=== PATIENT | female | born 1955 | race Caucasian/White ===

== ENCOUNTER 2022-12-03 16:04 | Outpatient (CLI) | payer MEDICARE, BC, SELFPAY ==
--- NOTE | 2022-12-03 16:00 | CRLHL7_ITS ---
For Patients: As a result of the Cures Act, medical imaging exams and procedure reports are released immediately into your electronic medical record. You may view this report before your referring provider. If you have questions, please contact your health care provider. INDICATION: Renal cysts on MRI of the lumbar spine TECHNIQUE: Ultrasound renal bilateral COMPARISON: None FINDINGS: Right kidney: 10.9 cm. Normal echotexture and cortex. No masses, stones, or hydronephrosis. Left kidney: 9.8 cm. Normal echotexture and cortex. No masses, stones, or hydronephrosis. IMPRESSION: Normal renal ultrasound. No evidence for renal cysts. Dictated by Chidi Abreu MD @ 12/03/2022 6:52:56 PM (Electronically Signed)
== END 2022-12-03 16:05 | disposition home or self-care (01) ==
LOC: US 16:06
PROVIDERS: PCP Family Medicine; Visit Provider Internal Medicine Nephrology
DX: N28.1 Cyst of kidney, acquired (principal)
CPT/HCPCS: 76775

== ENCOUNTER 2023-08-26 06:24 | Outpatient (CLI) | payer MEDICARE, BC, SELFPAY ==
--- OUTSIDE RECORDS SUMMARY | 2023-08-26 06:26 | XMS_ITS | Continuity of Care Document ---
Author Name Unknown Organization [facility] Address [address] [place] [address] Phone Care Team Providers Care Field Investigator Name Role Phone Ml Perla Unavailable Unavailable Allergies, Adverse Reactions, Alerts Substance Reaction Status Criticality adhesive Active No Information Medications Medication Instructions Dosage Effective Dates (start - stop) Status Comments VITAMIN D3 (unknown strength) Not Available - Active ATORVASTATIN CALCIUM (unknown strength) Not Available - Active Procedures Procedure Date Office/Outpatient Visit,Est, Mod 2021 Office/Outpatient Visit,New, Mod 2021 X-Ray Exam Of Neck Spine, 4+ Views Advance Directives Directive Yes / No Effective Date File Name No Information Encounters Encounter Description Practice Location Reason(s) For Visit Diagnoses Date Provider Providers Copied on Encounter Office/Outpat ient Visit,Est, Mod [facility], [address], [place], [id number], [place] tel:[phone] [facility] Spinal stenosis, cervical regionOther spondylosis, cervical regionCarpal tunnel syndrome of arm Viktor Bull. [facility], [address], [place], [address], [place]. tel:[phone] Referring Provider: [facility] [address], [place], [address]. tel:[phone] Office/Outpat ient Visit,New, Mod [facility], [address], [place], [id number], [place] tel:[phone] [facility] Other spondylosis, cervical regionSpinal stenosis, cervical region Viktor Bull. [facility], [address], [place], [address], [place]. tel:[phone] Referring Provider: [facility] [address], [place], [address]. tel:[phone] Family History Family Member Type Diagnosis Age At Onset No Information Payers Payer name Insurance type Covered democrat ID Desirae lucio(s) [facility] [id number] [facility] [id number] Medicare [facility] [id number] Social History Type Description Quantity Date Captured Comments Alcohol Use Details Unknown Caffeine Use Details Unknown Tobacco Use Status Current non-smoker Smoking Status Never smoker Non-Smoking Tobacco Use Details : No Details Available : No Details Available Sex Female Vital Signs Date / Time: Height Weight BMI Pulse Rate Blood Pressure Temperature Respiratory Rate Body Surface Area Head Circumference Head Circ. Percentile Wt./Samir. Percentile BMI percentile Pulse Ox Inhaled Ox 1:15 PM 64.75 in 85.275 kg (188.00 lbs) 31.5 2 kg/m eter (2) Chief Complaint And Reason For Visit No Information Reason For Referral Reason For Referral No Information History Of Present Illness Encounter Date Complaint History Of Prese nt Illness No Information Functional Status Date Functional Assessmen t No Information Instructions Date Instruction Additional Infor mation No Information Assessments Type Assessment Date assessment Spinal stenosis, cervical region assessment Other spondylosis, cervical mariza on assessment Carpal tunnel syndrome of arm Ap Patient Care Teams Name Effective Dates (start - stop) Status Members No Information
--- NOTE | 2023-08-26 08:21 | W.ANESCHARGE ---
Anesthesia Charges Start Date/Time Anesthesia Start Date: 08/26/23 Anesthesia Start Time: 07:25 Stop Date/Time Anesthesia Stop Date: 08/26/23 Anesthesia Stop Time: 08:05
--- NOTE | 2023-08-26 09:34 | W.ANESCHARGE ---
Anesthesia Charges Start Date/Time Anesthesia Start Date: 08/26/23 Anesthesia Start Time: 07:25 Stop Date/Time Anesthesia Stop Date: 08/26/23 Anesthesia Stop Time: 08:05
== END 2023-08-26 06:25 | disposition home or self-care (01) ==
LOC: OP CLINIC 06:25
PROVIDERS: PCP Family Medicine; Visit Provider Surgery
DX: Z12.11 Encounter for screening for malignant neoplasm of colon (principal); K64.4 Residual hemorrhoidal skin tags; Z86.010 Personal history of colon polyps
CPT/HCPCS: 00811; 00812; 45378; J2704

== ENCOUNTER 2024-07-21 09:12 | Outpatient (CLI) | payer MEDICARE, BC, SELFPAY ==
--- OUTSIDE RECORDS SUMMARY | 2024-07-21 09:16 | XMS_ITS | Encounter Summary ---
Author Organization [place] Address [address] [place] [address]. [place] [address] Care Team Providers Care Cargo And Container Inspector Name Role Phone Jinny Rodríguez Unavailable Unavailable Armen Bray MD Unavailable [phone] Smita Worthy MD Unavailable [phone] Jinny Rodríguez Primary Care Provider Unavailab Smita Ornelas MD Unavailable [facility] Primary Care Provider Selma Fnog RN Unavailable [phone] Alisa Hartman PA-C Unavailable Encounter Details Date Type Department Care Team (Late st Contact Info) Description 06/16/2020 [facility] [place] [id number] [place] [address] [address] [facility] [place] [id number] Smita Worthy MD [address] [facility] [address] [place] [address] Social History Tobacco Use Types Packs/Day Years Used Date Smoking Tobacco: Never Smokeless Tobacco: Never Alcohol Use Standard Drinks/Week Comments Yes 0 (1 standard drink = 0.6 oz pur e alcohol) 5 drinks yearly PHQ-2 Answer Date Recorded PHQ-2 Score 0 12/01/2018 Sex and Gender Information Value Date Recorded Sex Assigned at Not on file Gender Identity Not on file Sexual Orientation Not on file documented as of this encounter Plan of Treatment Not on file documented as of this encounter Visit Diagnoses Not on filedocumented in this encounter Care Teams Cargo And Container Inspector Relationship Specialty Start Date End Date Jinny Rodríguez PCP - General Family Practice 09/09/16 01/22/[address] [address] PCP - General 01/23/21 Jinny Rodríguez 10/18/11 Armen Bray MD [facility] [address] [facility] [address] [place], [place] [id number] Oncology 01/20/13 Smita Worthy MD [address] [id number] Oncology 03/21/16 Smita Worthy MD [address] [id number] Assigned Cancer Care Provider 09/15/20 04/14/24 Selma Fong RN Specialty Electro Mechanical Solar Technician Hematology & Oncology 10/25/23 Alisa Hartman, [facility] [address] [place] [address] [id number] Assigned Cancer Care Provider 04/15/24 documented as of this encounter
--- OUTSIDE RECORDS SUMMARY | 2024-07-21 09:16 | XMS_ITS | Referral Summary ---
Author Organization [place] Address [address] [place] [address] Care Team Providers Care Pharmacy Technician Name Role Phone Jinny Rodríguez Ann Unavailable Unavailable Armen Bray MD Unavailable [phone] Smita Worthy MD Unavailable [facility] Primary Care Provider Selma Fong RN Unavailable [phone] Alisa Hartman PA-C Unavailable Encounters Date Type Department Care Team Description 04/22/2024 Travel 04/22/2024 2:26 PM CDT - 04/22/2024 11:59 PM CDT Hospital Encounter [facility] [address] [facility] [address] [place] [id number] Alisa Hartman PA-C MOE (dyspnea on exertion) Discharge Disposition: Home or Self Care from Last 3 Months Allergies Active Allergy Reactions Criticality Noted Date Comments Adhesive Tape Rash Low 05/02/2014 Redness & rash. Paper tape ok. Gluten Meal GI Disturbance 04/11/2022 Pt following gluten free diet Medications Medication Sig Dispensed Refills Start Date End Date Status atorvastatin (LIPITOR) 20 MG tablet Take 20 mg by mouth daily Active cholecalciferol (VITAMIN D3) 25 mcg (1000 units) capsule Take 1 capsule by mouth daily Active Active Problems Problem Noted Date Diagnosed Date S/P total knee arthroplasty 05/03/2014 Malignant neoplasm of breast 04/14/2013 Overview: Do you wish to do the replacement in the background? yes Fever 04/14/2013 Neutropenic fever (H24) 04/12/2013 Anemia, iron deficiency 01/28/2013 Malignant neoplasm of other specified sites of female breast 12/23/2012 Immunizations Name Administration Dates Next Due TD,PF 7+ (Tenivac) 05/08/2006 TDAP (Adacel,Boostrix) 10/15/2011 Social History Tobacco Use Types Packs/Day Years Used Date Smoking Tobacco: Never Smokeless Tobacco: Never Tobacco Cessation:Counseling Given: Not Answered Alcohol Use Standard Drinks/Week Comments Yes 0 (1 standard drink = 0.6 oz pur e alcohol) 5 drinks yearly PHQ-2 Answer Date Recorded PHQ-2 Score 0 12/01/2018 Adolescent Education Answer Date Record ed Getting School Help Needed Not on file 08/22 Sex and Gender Information Value Date Recorded Sex Assigned at Not on file Gender Identity Not on file Sexual Orientation Not on file Last Filed Vital Signs Vital Sign Reading Time Taken Comments Blood Pressure 144/83 03/31/2024 8:53 AM CDT Pulse 58 03/31/2024 8:53 AM CDT Temperature 36.4 ??C (97.6 ??F) 03/31/2024 8:53 AM CD T Respiratory Rate 16 03/31/2024 8:53 AM CDT Oxygen Saturation 100% 03/31/2024 8:53 AM CDT Inhaled Oxygen Concentration - - Weight 82.9 kg (182 lb 12.8 oz) 03/31/2024 8:53 AM CDT Height 164.5 cm (5' 4.75) 03/31/2024 8:53 AM CD T Body Mass Index 30.65 03/31/2024 8:53 AM CDT Plan of Treatment Not on file Medical Devices Implanted Type Area Customer Care Assistant Device Identifier Shelf Expiration Date Model / Serial / Lot Bone Cement Simplex Full Dose 6191-1-001 Implanted:Qty: 2 on 11/04/2011 at [facility] Left: Knee 08/18/2013 6191-1-001 / / [id number] Imp Comp Femoral Howm Tri Cr Lt 4 5510-F-401 Implanted:Qty: 1 on 11/04/2011 at [facility] Left: Knee 07/18/2016 5510-F-401 / / [id number] Imp Baseplate Tibial Howm Tri 4 5520-B-400 Implanted:Qty: 1 on 11/04/2011 at [facility] Left: Knee 07/18/2016 5520-B-400 / / [id number] Imp Comp Patella Tri X3 Ps 31x9mm Implanted:Qty: 1 on 11/04/2011 at [facility] Left: Knee 10/18/2016 5550-G-319 / / [id number] Imp Insert Tibial Howm Tri 4x11mm 5530-G-411 Implanted:Qty: 1 on 11/04/2011 at [facility] Left: Knee 07/18/2016 5530-G-411 / / [id number] Mesh Ultrapro 03x06 Implanted:Qty: 1 on 12/22/2012 by Eunice Lombardo MD at [facility] Bilateral: Breast [employer]- 07/23/2017 UMR3 / / [id number] Mesh Ultrapro 06x06 Implanted:Qty: 1 on 12/22/2012 by Eunice Lombardo MD at [facility] Bilateral: Breast [employer] 05/23/2014 UMM3 / / [id number] Imp Breast 600ml Gel Round Hp [id number] Implanted:Qty: 1 on 07/08/2013 by Eunice Lombardo MD at [facility] Right: Breast 01/21/2018 [id number] / [id number] / [id number] Bone Cement Simplex Full Dose 6191-1-001 Implanted:Qty: 2 on 05/03/2014 by Carlos Kumar MD at [facility] Right: Knee [employer] 04/23/2016 6191-1-001 / / [id number] Imp Baseplate Tibial Howm Tri 4 5520-B-400 Implanted:Qty: 1 on 05/03/2014 by Carlos Kumar MD at [facility] Right: Knee [employer] 01/21/2019 5520-B-400 / / [id number] Imp Comp Fem Strk Triathln Cr Rt 4 [id number] Implanted:Qty: 1 on 05/03/2014 by Carlos Kumar MD at [facility] Right: Knee [employer] 02/21/2019 5510-F-402 / / [id number] Imp Comp Patella Tri X3 Ps [id number] 0570-G-339 Implanted:Qty: 1 on 05/03/2014 by Carlos Kumar MD at [facility] Right: Knee [employer] 02/21/2019 5550-G-339 / / [id number] Imp Insert Tibial Howm Tri 4x13mm [id number]-G-[id number] Implanted:Qty: 1 on 05/03/2014 by Carlos Kumar MD at [facility] Right: Knee [employer] 04/23/2015 5531-G-413 / / [id number] Explanted Type Area Customer Care Assistant Device Identifier Shelf Expiration Date Model / Serial / Lot Tissue Senior It Specialist Implant Allergan 500ml [id number]-13 Implanted:Qty: 1 on 12/23/2012 by Eunice Lombardo MD at [facility] Explanted:Qty: 1 on 07/08/2013 by Eunice Lombardo MD at [facility] Right: Breast 10/23/2015 [id number] / [id number] / Procedures Procedure Name Priority Date/Time Associated Diagnosis Comments ECHO COMPLETE Routine 04/22/2024 3:06 PM CDT MOE (dyspnea on exertion) COMPREHENSIVE METABOLIC PANEL Routine 03/31/2024 8:40 AM CDT Malignant neoplasm of right breast in female, estrogen receptor positive, unspecified site of breast (H) DX BONE DENSITY Routine 04/29/2016 1:33 PM CDT Osteopenia LIPID PROFILE Routine 06/21/2013 11:50 AM CDT High cholesterol ABSTRACT PAP (HIM EXTERNAL RESULT) Routine 09/30/2009 COLONOSCOPY - HIM SCAN Routine 10/17/2008 from Last 3 Months or Most Recently Relevant to Health Maintenance Results * ECHO COMPLETE (04/22/2024 3:06 PM CDT) LVEF 55-60% CARDIOLOGY RESULTS Anatomical Region Laterality Modality Echocardiography 04/22/2024 1:39 PM CDT Narrative 04/22/2024 4:19 PM CDT [id number]^RAMIRO BUSTOS^ALISA^Laly [facility] Echocardiography Laboratory [address] [place] [id number] Name: EVON VILLALBA : 1955 Study Date: 04/22/2024 01:39 PM Age: 69 yrs Gender: Female Patient Location: [facility] Reason For Study: MOE Ordering Physician: ALISA HARTMAN Referring Physician: [facility] Performed By: Marita Vega RDCS BSA: 1.7 m2 Height: 54 in Weight: 182 lb HR: 64 BP: 155/85 mmHg Procedure Complete Echo Adult. Interpretation Summary The visual ejection fraction is 55-60%. Left ventricular systolic function is normal. There is trace aortic regurgitation. The study was technically difficult. Left Ventricle The left ventricle is normal in size. There is mild concentric left ventricular hypertrophy. Diastolic Doppler findings (E/E' ratio and/or other parameters) suggest left ventricular filling pressures are indeterminate. The visual ejection fraction is 55-60%. Left ventricular systolic function is normal. Right Ventricle The right ventricle is normal in size and function. Atria Normal left atrial size. Right atrial size is normal. There is no color Doppler evidence of an atrial shunt. Mitral Valve There is trace mitral regurgitation. Tricuspid Valve There is trace tricuspid regurgitation. Aortic Valve The aortic valve is not well visualized. There is trace aortic regurgitation. No hemodynamically significant valvular aortic stenosis. Pulmonic Valve There is trace pulmonic valvular regurgitation. Normal pulmonic valve velocity. Vessels The aortic root is normal size. Normal size ascending aorta. IVC diameter <2.1 cm collapsing >50% with sniff suggests a normal RA pressure of 3 mmHg. Pericardium There is no pericardial effusion. Rhythm The rhythm was sinus bradycardia. MMode/2D Measurements & Calculations IVSd: 1.2 cm LVIDd: 4.3 cm LVIDs: 2.9 cm LVPWd: 1.1 cm IVC diam: 2.7 cm FS: 32.9 % LV mass(C)d: 166.3 grams LV mass(C)dI: 100.1 grams/m2 Ao root diam: 3.1 cm asc Aorta Diam: 2.9 cm Ao root diam index Ht(cm/m): 2.2 Ao root diam index BSA (cm/m2): 1.8 Asc Ao diam index BSA (cm/m2): 1.7 Asc Ao diam index Ht(cm/m): 2.1 LA Volume Index (BP): 33.2 ml/m2 RWT: 0.50 Doppler Measurements & Calculations MV E max guille: 67.8 cm/sec MV A max guille: 63.1 cm/sec MV E/A: 1.1 MV max P.6 mmHg MV mean P.79 mmHg MV V2 VTI: 15.9 cm MV dec slope: 386.2 cm/sec2 MV dec time: 0.18 sec PA acc time: 0.13 sec TR max guille: 184.7 cm/sec TR max P.6 mmHg E/E': 10.6 Peak E' Guille: 6.4 cm/sec Report approved by: Teodoro Bateman 04/22/2024 04:19 PM Procedure Note Benito Herrera MD - 04/22/2024 [id number]^RAMIRO BUSTOS^LESLY [facility] Echocardiography Laboratory [address] [place] [address] Name: EVON VILLALBA : 1955 Study Date: 04/22/2024 01:39 PM Age: 69 yrs Gender: Female Patient Location: [facility] Reason For Study: MOE Ordering Physician: ALISA HARTMAN Referring Physician: [facility] Performed By: Marita Vega RDCS BSA: 1.7 m2 Height: 54 in Weight: 182 lb HR: 64 BP: 155/85 mmHg Procedure Complete Echo Adult. Interpretation Summary The visual ejection fraction is 55-60%. Left ventricular systolic function is normal. There is trace aortic regurgitation. The study was technically difficult. Left Ventricle The left ventricle is normal in size. There is mild concentric left ventricular hypertrophy. Diastolic Doppler findings (E/E' ratio and/orother parameters) suggest left ventricular filling pressures are indeterminate.The visual ejection fraction is 55-60%. Left ventricular systolic functionis normal. Right Ventricle The right ventricle is normal in size and function. Atria Normal left atrial size. Right atrial size is normal. There is no color Doppler evidence of an atrial shunt. Mitral Valve There is trace mitral regurgitation. Tricuspid Valve There is trace tricuspid regurgitation. Aortic Valve The aortic valve is not well visualized. There is trace aorticregurgitation. No hemodynamically significant valvular aortic stenosis. Pulmonic Valve There is trace pulmonic valvular regurgitation. Normal pulmonic valve velocity. Vessels The aortic root is normal size. Normal size ascending aorta. IVC diameter<2.1 cm collapsing >50% with sniff suggests a normal RA pressure of 3 mmHg. Pericardium There is no pericardial effusion. Rhythm The rhythm was sinus bradycardia. MMode/2D Measurements & Calculations IVSd: 1.2 cm LVIDd: 4.3 cm LVIDs: 2.9 cm LVPWd: 1.1 cm IVC diam: 2.7 cm FS: 32.9 % LV mass(C)d: 166.3 grams LV mass(C)dI: 100.1 grams/m2 Ao root diam: 3.1 cm asc Aorta Diam: 2.9 cm Ao root diam index Ht(cm/m): 2.2 Ao root diam index BSA (cm/m2): 1.8 Asc Ao diam index BSA (cm/m2): 1.7 Asc Ao diam index Ht(cm/m): 2.1 LA Volume Index (BP): 33.2 ml/m2 RWT: 0.50 Doppler Measurements & Calculations MV E max guille: 67.8 cm/sec MV A max guille: 63.1 cm/sec MV E/A: 1.1 MV max P.6 mmHg MV mean P.79 mmHg MV V2 VTI: 15.9 cm MV dec slope: 386.2 cm/sec2 MV dec time: 0.18 sec PA acc time: 0.13 sec TR max guille: 184.7 cm/sec TR max P.6 mmHg E/E': 10.6 Peak E' Guille: 6.4 cm/sec Report approved by: Teodoro Bateman 04/22/2024 04:19 PM Alisa Bustos PA-C CV ECHO ORDERABLES * Comprehensive metabolic panel (BMP + Alb, Alk Phos, ALT, AST, Total. Bili, TP) (03/31/2024 8:40 AM CDT) [facility] Sodium 144 135 - 145 mmol/L 03/31/2024 9:02 AM CDT [facility] Comment:Reference intervals for this test were updated on 08/19/2023 to more accurately reflect our healthy population. There may be differences in the flagging of prior results with similar values performed with this method. Interpretation of those prior results can be made in the context of the updated reference intervals. Potassium 4.3 3.4 - 5.3 mmol/L 03/31/2024 9:02 AM CDT LABORATORY Carbon Dioxide (CO2) 27 22 - 29 mmol/L 03/31/2024 9:02 AM CDT LABORATORY Anion Gap 12 7 - 15 mmol/L 03/31/2024 9:02 AM CDT LABORATORY Urea Nitrogen 19.9 8.0 - 23.0 mg/dL 03/31/2024 9:02 AM CDT LABORATORY Creatinine 0.64 0.51 - 0.95 mg/dL 03/31/2024 9:02 AM CDT LABORATORY GFR Estimate >90 >60 mL/min/1. 73m2 03/31/2024 9:02 AM CDT LABORATORY Calcium 9.3 8.8 - 10.2 mg/dL 03/31/2024 9:02 AM CDT LABORATORY Chloride 105 98 - 107 mmol/L 03/31/2024 9:02 AM CDT LABORATORY Glucose 98 70 - 99 mg/dL 03/31/2024 9:02 AM CDT LABORATORY Alkaline Phosphatase 76 40 - 150 U/L 03/31/2024 9:02 AM CDT LABORATORY Comment:Reference intervals for this test were updated on 10/07/2023 to more accurately reflect our healthy population. There may be differences in the flagging of prior results with similar values performed with this method. Interpretation of those prior results can be made in the context of the updated reference intervals. AST 24 0 - 45 U/L 03/31/2024 9:02 AM CDT LABORATORY Comment:Reference intervals for this test were updated on 05/05/2023 to more accurately reflect our healthy population. There may be differences in the flagging of prior results with similar values performed with this method. Interpretation of those prior results can be made in the context of the updated reference intervals. ALT 22 0 - 50 U/L 03/31/2024 9:02 AM CDT LABORATORY Comment:Reference intervals for this test were updated on 05/05/2023 to more accurately reflect our healthy population. There may be differences in the flagging of prior results with similar values performed with this method. Interpretation of those prior results can be made in the context of the updated reference intervals. Protein Total 6.9 6.4 - 8.3 g/dL 03/31/2024 9:02 AM CDT [facility] Albumin 4.4 3.5 - 5.2 g/dL 03/31/2024 9:02 AM CDT [facility] Bilirubin Total 0.8 <=1.2 mg/dL 03/31/2024 9:02 AM CDT [facility] Blood STRUCTURE OF LEFT UPPER LIMB / Unknown Venipuncture / Unknown 03/31/2024 8:40 AM CDT 03/31/2024 8:43 AM CDT Alisa Bustos PA-C LAB - B LOOD ORDERABLES LABORATORY [facility] [address] [facility] (1st floor, no room number) [place] [address] * DX Hip/Pelvis/Spine (04/29/2016 1:33 PM CDT) Anatomical Region Laterality Modality Dexa Computed Radiogr aphy Narrative 05/01/2016 8:59 PM CDT BONE DENSITOMETRY [address] [address] 04/29/2016 PATIENT: Evon Villalba CHART: [id number] ?? :?? 1955 AGE:?? 61 year old SEX:?? female REFERRING PROVIDER:?? SMITA WORTHY MD PROCEDURE:?? Bone density scanning was performed using DXA technology of the lumbar spine and hip.?? Scanning was performed on a Sols scanner.?? Reporting is completed in the form of a T-score.?? The T-score represents the standard deviation from peak bone mass based on a young healthy adult. REFERENCE T-SCORES: ? Normal? -1.0 and greater? Osteopenia? Between -1.0 and -2.5? Osteoporosis? -2.5 and less? RISK FACTORS:?? Post-menopausal, Condition related to bone loss: breast cancer therapy: aromasin CURRENT TREATMENT:?? Vitamin D FINDINGS: ? Lumbar Spine (L1-L4)? T-score:?? 1.3, marked degenerative changes present ? Left Femoral Neck ? T-score:?? 0.4 ? Right Femoral Neck ? T-score:?? 0.4 ? Lumbar (L1-L4) BMD: 1.356?Previous: 1.393? Total Hip Mean BMD: 1.049?Previous: 1.075 Comparison is made to other DXAs performed on the same Sols?? machine on 05/28/13 and 04/20/14. IMPRESSION Normal bone mineral density., Degenerative changes of the lumbar spine which may falsely elevate results. There has been no significant change in bone density of the lumbar spine compared to 2013. There has been significant decrease compared to 2013 There has been no significant change in bone density of the hip(s) compared to 2013. There has been significant decrease compared to 2012. Recommendations include ensuring adequate Calcium and Vitamin D. The current NOF Guidelines recommend treatment for patients with prior hip or vertebral fracture, T-score -2.5 or below, or 10 year risk of any major osteoporotic fracture >20% or 10 year risk of hip fracture >3%, as calculated using the FRAX calculator (www.shef.ac.uk/FRAX or you can google FRAX). ?? This patient's risks based on available information, with the use of FRAX, are 5.7 % for major osteoporotic fracture and 0.1 % for hip fracture. Based on these guidelines, treatment (in addition to calcium and vitamin D) is not recommended for this patient, after ruling out other causes of osteoporosis. This is meant as an aid to clinical decision making; one must still use clinical judgement. Follow up can be considered in 5 years. Jinny Miller M.D. Electronically signed [facility] Kristin Worthy MD IMG DEXA JEROMY BENSON * (ABNORMAL) Lipid Profile (Chol, Trig, HDL, LDL calc) (06/21/2013 11:50 AM CDT) [facility] Cholesterol 225(H) 0 - 200 mg/dL [facility] Comment: LDL Cholesterol is the primary guide to therapy. The NCEP recommends further evaluation of: patients with cholesterol greater than 200 mg/dL if additional risk factors are present, cholesterol greater than 240 mg/dL, triglycerides greater than 150 mg/dL, or HDL less than 40 mg/dL. Triglycerides 119 0 - 150 mg/dL [facility] HDL Cholesterol 47(L) 50 - 110 mg/dL [facility] LDL Cholesterol Calculated 154(H) 0 - 129 mg/dL [facility] Comment: LDL Cholesterol is the primary guide to therapy: LDL-cholesterol goal in high risk patients is <100 mg/dL and in very high risk patients is <70 mg/dL. VLDL-Cholesterol 24 0 - 30 mg/dL [facility] Cholesterol/HDL Ratio 4.8 0.0 - 5.0 [facility] Blood specimen (specimen) 06/21/2013 11:50 AM CDT 06/21/2013 11:56 AM CDT Armen Bray MD LAB - BLOOD ORDER ALEX [facility] * ABSTRACT PAP-NO CHARGE (09/30/2009) Narrative MISYS - 09/30/2009 Family [facility] Provider Scan LAB - HIM EXTERNAL R ESULT MISYS * Colonoscopy - HIM Scan (10/17/2008) Narrative Jazmyn Worthy - 10/17/2008 [facility] Isa GARCIA from Last 3 Months or Most Recently Relevant to Health Maintenance Advance Directives For more information, please contact: [phone] * Full Code (Latest Code Status on File) Date Activated Date Inactivated Comments 05/04/2014 11:48 AM * Full Code Date Activated Date Inactivated Comments 05/03/2014 1:12 PM 05/04/2014 11:48 AM * Full Code Date Activated Date Inactivated Comments 04/12/2013 5:19 PM 04/14/2013 4:15 PM * Full Code Date Activated Date Inactivated Comments 12/23/2012 12:55 AM 12/26/2012 1:48 PM * Full Code Date Activated Date Inactivated Comments 11/04/2011 11:24 AM 11/07/2011 3:11 PM Care Teams Pharmacy Technician Relationship Specialty Start Date End Date Clinic, [address] [address] PCP - General 01/23/21 Jinny Rodríguez 10/18/11 Armen Bray MD [facility] [address] [facility] [address] [place] [address] Oncology 01/20/13 Smita Worthy MD [address] [place] [address] [address] [place], [place] [id number] Oncology 03/21/16 Selma Fong, RN Specialty Housetrailer Servicer Hematology & Oncology 10/25/23 Alisa Hartman, PADickC [address] [place] [address] [id number] Assigned Cancer Care Provider 04/15/24
--- OUTSIDE RECORDS SUMMARY | 2024-07-21 09:16 | XMS_ITS | Encounter Summary ---
Author Organization [place] Address [address] [place] [address]. [place] [address] Care Team Providers Care Hotel Reservationist Name Role Phone Jinny Rodríguez Unavailable Unavailable Armen Bray MD Unavailable [phone] Smita Worthy MD Unavailable [phone] Jinny Rodríguez Primary Care Provider Unavailab Smita Ornelas MD Unavailable [facility] Primary Care Provider Selma Fong RN Unavailable [phone] Alisa Hartman PA-C Unavailable Encounter Details Date Type Department Care Team (Late st Contact Info) Description 08/17/2020 [facility] [place] [facility] [place] [id number] [place] [address] [address] [facility] [place] [phone] Smita Worthy MD [address] [facility] [address] [place] [address] Social History Tobacco Use Types [...] on file documented as of this encounter Miscellaneous Notes * Telephone Encounter - Karo Martinez RN - 08/18/2020 3:36 PM CDT Images from the original note were not included. Alisa Hartman PA-C You; Cancer Clinic Structural Worker 23 minutes ago (3:12 PM) I think it would be fine. Message text Will send RacerTimest message to pt with reply. Karo Martinez, RN, BSN, OCN, CBCN documented in this encounter Plan of Treatment Not on file documented as of this encounter Visit Diagnoses Not on filedocumented in this encounter Care Teams Hotel Reservationist Relationship Specialty Start Date End Date Jinny Rodríguez PCP - General Family Practice 09/09/16 01/22/21 [facility], [address] [address] PCP - General 01/23/21 Jinny Rodríguez 10/18/11 Armen Bray MD [place] [facility] [address] [facility] [address] [place] [address] Oncology 01/20/13 Smita Worthy MD [address] [place] [address] Oncology 03/21/16 Smita Worthy MD [address] [place] [address] [phone] Assigned Cancer Care Provider 09/15/20 04/14/24 Selma Fong RN Specialty Hvac Manager Hematology & Oncology 10/25/23 Alisa Hartman PA-C [address] [place] [id number] Assigned Cancer Care Provider 04/15/24 documented as of this encounter
--- OUTSIDE RECORDS SUMMARY | 2024-07-21 09:16 | XMS_ITS | Clinical Summary ---
Author Organization [facility] Address [address] [place] [address]. [place] [address] Care Team Providers Care Rn Private Duty Name Role Phone Jinny Rodríguez Ann Unavailable Unavailable Armen Bray MD Unavailable [phone] Smita Worthy MD [facility] Primary Care Provider Selma Fong RN Unavailable Alisa HartmanC Unavailable Allergies Active Allergy Reactions Criticality Noted Date [...] other specified sites of female breast 12/23/2012 Encounters Date Type Department Care Team Description 04/22/2024 2:26 PM CDT - 04/22/2024 11:59 PM CDT Hospital Encounter [facility] [address] [facility] [address] [place] [address] Alisa Hartman PA-C DOE (dyspnea on exertion) Discharge Disposition: Home or Self Care 04/22/2024 Travel from Last 3 Months Immunizations Name Administration Dates Next Due TD,PF 7+ (Tenivac) 05/08/2006 TDAP (Adacel,Boostrix) 10/15/2011 Family History Medical History Relation Comments Family History Negative Father Family History Negative Mother Relation Status Comments Father Mother Social History Tobacco Use Types Packs/Day Years [...] 03/31/2024 8:53 AM CDT Plan of Treatment Health Maintenance Due Date Last Done Comments ADVANCE CARE PLANNING 1955 ANNUAL REVIEW OF HM ORDERS 1955 CT COLONOGRAPHY 1955 FIT 1955 FLEX SIG 1955 sDNA (Cologuard) 1955 Pneumococcal Vaccine: 65+ Years (1 of 2 - PCV) 1962 HEPATITIS C SCREENING 1974 LIPID 06/21/2014 06/21/2013 RSV VACCINE ( & 60+) (1 - 1-dose 60+ series) 2016 COLONOSCOPY 10/17/2018 10/17/2008 COLORECTAL CANCER SCREENING 10/17/2018 FALL RISK ASSESSMENT 2021 MEDICARE ANNUAL WELLNESS VISIT 2021 COVID-19 Vaccine ( season) 2023 09/16/2023, 11/20/2022, 09/20/2021, Additional history exists PHQ-2 (once per calendar year) 2023 09/18/2016, 03/20/2016 INFLUENZA VACCINE (#1) 2024 3, 09/04/2022, 08/31/2021, Additional history exists GLUCOSE 03/31/2027 03/31/2024, 05/0 07/2023, 02/01/2021, Additional history exists DEXA 04/29/2031 04/29/2016, 05/2 06/2014, 05/28/2013 DTAP/TDAP/TD IMMUNIZATION (4 - Td or Tdap) 01/02/2032 01/02/2022, 10/15/2011, 10/15/2011, Additional history exists PAP Discontinued 09/30/2009 ZOSTER IMMUNIZATION Completed 11/06/2020, 0 HPV IMMUNIZATION Aged Out No longer e ligible based on patient's age to complete this topic MENINGITIS IMMUNIZATION Aged Out No l onger eligible based on patient's age to complete this topic RSV MONOCLONAL ANTIBODY Aged Out No l onger eligible based on patient's age to complete this topic Medical Devices Implanted Type Area Brake Reliner Device Identifier Shelf Expiration Date Model / Serial / Lot Bone Cement Simplex Full Dose 6191-1-001 Implanted:Qty: 2 on 11/04/2011 at [facility] Left: Knee 08/18/2013 6191-1-001 / / [id number] Imp Comp Femoral Howm Tri Cr Lt 4 5510-F-401 Implanted:Qty: 1 on 11/04/2011 at [facility] Left: Knee 07/18/2016 5510-F-401 / / [id number] Imp Baseplate Tibial Howm Tri 4 [id number]-B-400 Implanted:Qty: 1 on 11/04/2011 at [facility] Left: Knee 07/18/2016 5520-B-400 / / [id number] Imp Comp Patella Tri X3 Ps 31x9mm Implanted:Qty: 1 on 11/04/2011 at [facility] Left: Knee 10/18/2016 5550-G-319 / / [id number] Imp Insert Tibial Howm Tri 4x11mm 5530-G-411 Implanted:Qty: 1 on 11/04/2011 at [facility] Left: Knee 07/18/2016 5530-G-411 / / [id number] Mesh Ultrapro 03x06 Implanted:Qty: 1 on 12/22/2012 by Eunice Lombardo MD at [facility] Bilateral: Breast [employer]- 07/23/2017 UMR3 / / [id number] Mesh Ultrapro 06x06 Implanted:Qty: 1 on 12/22/2012 by Eunice Lombardo MD at [facility] Bilateral: Breast [employer]- 05/23/2014 UMM3 / / [id number] Imp Breast 600ml Gel Round Hp [id number] Implanted:Qty: 1 on 07/08/2013 by Eunice Lombardo MD at [facility] Right: Breast 01/21/2018 [id number] / [id number] / [id number] Bone Cement Simplex Full Dose 6191-1-001 Implanted:Qty: 2 on 05/03/2014 by Carlos Kumar MD at [facility] Right: Knee [employer] 04/23/2016 6191-1-001 / / [id number] Imp Baseplate Tibial Howm Tri 4 [id number]-B-400 Implanted:Qty: 1 on 05/03/2014 by Carlos Kumar MD at [facility] Right: Knee [employer] 01/21/2019 5520-B-400 / / [id number] Imp Comp Fem Strk Triathln Cr Rt 4 5510-F-402 Implanted:Qty: 1 on 05/03/2014 by Carlos Kumar MD at [facility] Right: Knee [employer] 02/21/2019 5510-F-402 / / [id number] Imp Comp Patella Tri X3 Ps [id number]-G-339 Implanted:Qty: 1 on 05/03/2014 by Carlos Kumar MD at [facility] Right: Knee [employer] 02/21/2019 5550-G-339 / / [id number] Imp Insert Tibial Howm Tri 4x13mm 9292-G-[id number] Implanted:Qty: 1 on 05/03/2014 by Carlos Kumar MD at [facility] Right: Knee [employer] 04/23/2015 3423-G-413 / / [id number] Explanted Type Area Brake Reliner Device Identifier Shelf Expiration Date Model / Serial / Lot Tissue Dye House Helper Implant Allergan 500ml [id number]-13 Implanted:Qty: 1 on 12/23/2012 by Eunice Lombardo MD at [facility] Explanted:Qty: 1 on 07/08/2013 by Eunice Lombardo MD at [facility] Right: Breast 10/23/2015 [id number]-13 / [id number] / Procedures Procedure Name Priority Date/Time Associated Diagnosis Comments ECHO COMPLETE Routine 04/22/2024 3:06 PM CDT MOE (dyspnea on exertion) COMPREHENSIVE METABOLIC PANEL Routine 03/31/2024 8:40 AM CDT Malignant neoplasm of right breast in female, estrogen receptor positive, unspecified site of breast (H) DX BONE DENSITY Routine 04/29/2016 1:33 PM CDT Osteopenia LIPID PROFILE Routine 06/21/2013 11:50 AM CDT High cholesterol ABSTRACT PAP ([facility] EXTERNAL RESULT) Routine 09/30/2009 COLONOSCOPY - HIM SCAN Routine 10/17/2008 from Last 3 Months or Most Recently Relevant to Health Maintenance Results * ECHO COMPLETE (04/22/2024 3:06 PM CDT) LVEF 55-60% CARDIOLOGY RESULTS Anatomical Region Laterality Modality Echocardiography 04/22/2024 1:39 PM CDT Narrative 04/22/2024 4:19 PM CDT [id number]^RAMIRO BUSTOS^ALISA^[facility] Echocardiography Laboratory [address] [place] [address] Name: EVON VILLALBA : 1955 Study Date: 04/22/2024 01:39 PM Age: 69 yrs Gender: Female Patient Location: [facility] Reason For Study: MOE Ordering Physician: ALISA HARTMAN Referring Physician: [facility] Performed By: Marita Vega RDCS BSA: 1.7 [...] Procedure Note Benito Herrera MD - 04/22/2024 [id number]^RAMIRO BUSTOS^LESLY [facility] Echocardiography Laboratory [address] [place] [id number] Name: EVON VILLALBA : 1955 Study Date: 04/22/2024 01:39 PM Age: 69 yrs Gender: Female Patient Location: [facility] Reason For Study: MOE Ordering Physician: ALISA HARTMAN Referring Physician: [facility] Performed By: Marita Vega RDCS BSA: 1.7 [...] E' Guille: 6.4 cm/sec Report approved by: Toedoro Bateman 04/22/2024 04:19 PM Alisa Bustos PA-C CV ECHO ORDERABLES * Comprehensive metabolic panel (BMP + Alb, Alk Phos, ALT, AST, Total. Bili, TP) (03/31/2024 8:40 AM CDT) [facility] Sodium 144 135 - 145 mmol/L 03/31/2024 9:02 AM CDT LABORATORY Comment:Reference intervals [...] - 8.3 g/dL 03/31/2024 9:02 AM CDT LABORATORY Albumin 4.4 3.5 - 5.2 g/dL 03/31/2024 9:02 AM CDT [facility]AT[facility] Bilirubin Total 0.8 <=1.2 mg/dL 03/31/2024 9:02 AM CDT [facility] Blood STRUCTURE OF LEFT UPPER LIMB / Unknown Venipuncture / Unknown 03/31/2024 8:40 AM CDT 03/31/2024 8:43 AM CDT Alisa Bustos PA-C LAB - B LOOD ORDERABLES [facility] LABORAT[facility] Lab [address] [facility] Lab (1st floor, no room number) [place] [address] * DX Hip/Pelvis/Spine (04/29/2016 1:33 PM CDT) Anatomical Region Laterality Modality Dexa Computed Radiogr aphy Narrative 05/01/2016 8:59 PM CDT BONE DENSITOMETRY [address] [address] 04/29/2016 PATIENT: Evon Villalba CHART: [id number] ?? :?? 1955 AGE:?? 61 year old SEX:?? female REFERRING PROVIDER:?? SMITA WORTHY MD PROCEDURE:?? Bone density scanning was performed using DXA technology of the lumbar spine and hip.?? Scanning was performed on a Fourandhalf scanner.?? Reporting is completed in the form [...] to other DXAs performed on the same Fourandhalf?? machine on 05/28/13 and 04/20/14. IMPRESSION Normal bone mineral density., Degenerative changes of the lumbar spine which may falsely elevate results. There has been no significant change in bone density of the lumbar spine compared to 2013. There has been significant decrease compared to 2012 There has been no significant change in [...] 5 years. Jinny Miller M.D. Electronically signed Smita Worthy MD IMG DEXA JEROMY BENSON * (ABNORMAL) Lipid Profile (Chol, Trig, HDL, LDL calc) (06/21/2013 11:50 AM CDT) [facility] Signature Cholesterol 225(H) 0 - 200 mg/dL [facility] Comment: LDL Cholesterol is the primary guide to therapy. The NCEP recommends further evaluation of: patients with cholesterol greater than 200 mg/dL if additional risk factors are present, cholesterol greater than 240 mg/dL, triglycerides greater than 150 mg/dL, or HDL less than 40 mg/dL. Triglycerides 119 0 - 150 mg/dL [facility] HDL Cholesterol 47(L) 50 - 110 mg/dL [facility] LDL Cholesterol Calculated 154(H) 0 - 129 mg/dL [facility] Comment: LDL Cholesterol is the primary guide to therapy: LDL-cholesterol goal in high risk patients is <100 mg/dL and in very high risk patients is <70 mg/dL. VLDL-Cholesterol 24 0 - 30 mg/dL [facility] Cholesterol/HDL Ratio 4.8 0.0 - 5.0 [facility] Blood specimen (specimen) 06/21/2013 11:50 AM CDT 06/21/2013 11:56 AM CDT Armen Bray MD LAB - BLOOD ORDER ALEX [facility] * ABSTRACT PAP-NO CHARGE (09/30/2009) Narrative MISYS - 09/30/2009 Family [facility] Provider Scan LAB - HIM EXTERNAL R ESULT MISYS * Colonoscopy - HIM Scan (10/17/2008) Narrative Jazmyn Worthy - 10/17/2008 [facility] Isa ZHAO ES from Last 3 Months or Most Recently Relevant to Health Maintenance Advance Directives For more information, please contact: [phone] * Full Code (Latest Code Status on [...] 11:24 AM 11/07/2011 3:11 PM Care Teams Rn Private Duty Relationship Specialty Start Date End Date Clinic, [address] [address] PCP - General 01/23/21 Jinny Rodríguez 10/18/11 Armen Bray MD [place] ONCOLOGY HEMATOLOGY [address] [facility] [address] [place] [address] Oncology 01/20/13 Smita Worthy MD [address] [facility] [address] [place], [place] [address] Oncology 03/21/16 Selma Fong, RN Specialty Front Desk Agent Hematology & Oncology 10/25/23 Alisa Hartman, PA-C [address] [place] [address] [id number] Assigned Cancer Care Provider 04/15/24
--- OUTSIDE RECORDS SUMMARY | 2024-07-21 09:16 | XMS_ITS ---
Author Organization [facility] Address [address] [place] [address]. [place] [address] Care Team Providers Care Aging Box Hand Name Role Phone Jinny Rodríguez Ann Unavailable Unavailable Armen Bray MD Unavailable [phone] Smita Worthy MD Unavailable [phone] [facility] Primary Care Provider Selma Fong RN Unavailable [phone] Alisa Hartman PA-C Unavailable Active Problems Problem Noted Date Diagnosed Date S/P total knee arthroplasty 05/03/2014 Malignant neoplasm of breast 04/14/2013 Overview: Do you wish to do the replacement in the background? yes Fever 04/14/2013 Neutropenic fever (H24) 04/12/2013 Anemia, iron deficiency 01/28/2013 Malignant neoplasm of other specified sites of female breast 12/23/2012 Current Oncology Plans No current plan information found. Past Plans Radiation Treatments * No radiation treatments are documented for this patient in [facility]. Treatments may have been administered in another system.
--- OUTSIDE RECORDS SUMMARY | 2024-07-21 09:16 | XMS_ITS ---
Author Organization [facility] Address [address] [place] [address] Care Team Providers Care Cpht Name Role Phone Unavailable Unavailable Unavailable Surgery Details Not on file Complications Check Surgery Details section. Procedure Estimated Blood Loss Check Surgery Details section. Procedure Findings Check Surgery Details section. Procedure Specimens Taken Check Surgery Details section.
--- OUTSIDE RECORDS SUMMARY | 2024-07-21 09:16 | XMS_ITS | Encounter Summary ---
Author Organization [facility] Address [address] [place] [address]. [place] [address] Care Team Providers Care Mass Spec Name Role Phone Jinny Rodríguez Unavailable Unavailable Armen Bray MD Unavailable [phone] Smita Worthy MD Unavailable On License Of [facility] Primary Care Provider Selma Fong RN Unavailable [phone] Alisa HartmanC Unavailable Encounter Details Date Type Department Care Team (Latest Contact Info) Description 04/22/2024 Travel Social History Tobacco Use Types Packs/Day Years [...] on filedocumented in this encounter Care Teams Mass Spec Relationship Specialty Start Date End Date [address] [address] PCP - General 01/23/21 Jinny Rodríguez 10/18/11 Armen Bray MD [place] ONCOLOGY HEMATOLOGY [address] [facility] [address] [place] [address] Oncology 01/20/13 Smita Worthy MD [address] [facility] [address] [place], [place] [address] Oncology 03/21/16 Selma Fong, RN Specialty Occupational Therapy Professor Hematology & Oncology 10/25/23 Alisa Hartman, JEWELC [address] [place] [address] Assigned Cancer Care Provider 04/15/24 documented as of this encounter
--- OUTSIDE RECORDS SUMMARY | 2024-07-21 09:16 | XMS_ITS | Referral Summary ---
Author Organization [facility] Address [address] [place] [address] Care Team Providers Care Chief Technician X Ray Name Role Phone Elsewhere, Pcp Primary Care Provider Unavailabl e Source Comments Patient records contain information from all sites at [facility]. For routine questions regarding patient records, call [phone] during business hours, M-F 8:00 AM - 5:00 PM Central Time. Record requests for emergency care only can be directed to [phone] at any time.[facility] Allergies Active Allergy Reactions Criticality Noted Date Comments Adhesive Tape-Silicones Rash Low 05/02/2014 Redness & rash. Paper tape ok. Medications Medication Sig Dispensed Refills Start Date End Date Status cholecalciferol (VITAMIN D3) 5 mcg (200 Unit) tablet Active atorvastatin (LIPITOR) 20 mg tablet Take 20 mg by mouth daily. 09/27/2019 Active Active Problems Problem Noted Date Diagnosed Date Cyst Renal 12/03/2022 Hyperlipidemia 06/09/2013 Malignant Neoplasm Of Unspec ified Site Of Laterality Unknown Female Breast 12/23/2012 Overview (12/03/2022): Do you wish to do the replacement in the background? yes Pain Low Back Unspecified Pain Knee Left Piriformis Syndrome Right Pain Hip Bilateral Pain Cervical Pain Neck Immunizations Name Administration Dates Next Due SARS-COV-2 (COVID-19) - MODERNA(Discontinued) ,02/02/2021 SARS-COV-2 (COVID-19) - PFIZ ER (Discontinued)(12 years or older) 09/20/2021 Tdap 06/07/2008 Social History Tobacco Use Types Packs/Day Years Used Date Smoking Tobacco: Never Smokeless Tobacco: Never Nutrition Answer Date Recorded Nutrition: EVOO Fat Source Unknown 01/12 Nutrition: Servings of Fruits/Vegetables per Day Not on file 01/12/2021 Dental Answer Date Recorded Dental: Regular Dentist Unknown 01/12/20 21 Sex and Gender Information Value Date Recorded Sex Assigned at Not on file Gender Identity Not on file Sexual Orientation Not on file Last Filed Vital Signs Vital Sign Reading Time Taken Comments Blood Pressure 130/80 12/03/2022 11:19 AM INFANT 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 LEAD TEACHER Pulse 78 12/03/2022 11:19 AM INFANT TOD[employer]ER LEAD TEACHER Temperature 36.9 ??C (98.4 ??F) 03/06/2019 9:01 AM CD T Respiratory Rate 16 07/04/2015 11:09 AM CDT Oxygen Saturation 98% 03/06/2019 9:01 AM CDT Inhaled Oxygen Concentration - - Weight 85.7 kg (188 lb 15 oz) 12/03/2022 11:19 A M [employer] Height 165 cm (5' 4.96) 12/03/2022 11:19 AM INFANT TODDLER LEAD TEACHER Body Mass Index 31.48 12/03/2022 11:19 AM INFANT TODDLER LEAD TEACHER Plan of Treatment Not on file Procedures Procedure Name Priority Date/Time Associated Diagnosis Comments BASIC METABOLIC PANEL, S/P Routine 07/07/2015 3:50 PM CDT LIPID PANEL, S Routine 07/07/2015 3:50 PM CDT from Last 3 Months or Most Recently Relevant to Health Maintenance Results * (ABNORMAL) Lipid Panel (07/07/2015 3:50 PM CDT) Cholesterol, Total 236(H) <=199 MGDL POWERCHART Comment: 2014 National Lipid Association recommendations for Total Cholesterol in adults ages 18 and up: Desirable <200 mg/dL Borderline high 200-239 mg/dL High 240 mg/dL 2014 National Lipid Association recommendations for Total Cholesterol in children ages 2 to 17. Acceptable <170 mg/dL Borderline High 170-199 mg/dL High 200 mg/dL HX HDL 45(L) >=50 MGDL POWERCHART Comment: 2014 National Lipid Association recommendations for HDL-C in adults ages 18 and up: Low <40 mg/dL (Men) Low <50 mg/dL (Women) 2014 National Lipid Association recommendations for HDL-C in children ages 2 to 17. Low <40 mg/dL Borderline Low 40-45 mg/dL Acceptable >45 mg/dL Triglycerides 82 <=149 MGDL POWERCHART Comment: 2014 National Lipid Association recommendations for Triglycerides in adults ages 18 and up: Normal <150 mg/dL Borderline High 150-199 mg/dL High 200-499 mg/dL Very High 500 mg/dL 2014 National Lipid Association recommendations for Triglycerides in children ages 2 to 9. Acceptable <75 mg/dL Borderline High 75-99 mg/dL High 100 mg/dL 2014 National Lipid Association recommendations for Triglycerides in children ages 10 to 17. Acceptable <90 mg/dL Borderline High 90-129 mg/dL High 130 mg/dL Trigs >400mg/dL: Triglycerides >400 mg/dL. Calculated LDL cholesterol is not valid. Non-HDL cholesterol may be used for risk assessment when triglycerides are >400mg/dL. Calculated LDL 175(H) <=129 MGDL POWERCHART Comment: 2014 National Lipid Association recommendations for LDL-C in adults ages 18 and up: Desirable <100 mg/dL Above desirable 100-129 mg/dL Borderline high 130-159 mg/dL High 160-189 mg/dL Very High 190 mg/dL 2014 National Lipid Association recommendations for LDL-C in children ages 2 to 17. Acceptable <110 mg/dL Borderline High 110-129mg/dL High 130 mg/dL LDL-C >190mg/dL: The markedly elevated LDL level is suggestive of a genetic condition such as familial hypercholesterolemia(FH) or familial defective apolipoprotein B-100 (FDB). Molecular genetic testing for FH and FDB is available through [facility]: FH/ADH Genetic Reflex Panel (test ADHP). Acquired (non-genetic) causes of markedly increased LDL cholesterol include cholestatic liver disease due to the presence of LpX. If a genetic form of hypercholesterolemia is suspected, family studies including biochemical testing for lipids (total cholesterol,triglycerides, LDL cholesterol and HDL cholesterol) are recommended. ??Please contact the laboratory at or the on-line test catalog at [facility] for information about how to order these tests or to speak with a genetic counselor. Further interpretation would require clinical information. Blood 07/07/2015 3:50 PM CDT Randi Brooks APRN, C.N.P. LAB BLOOD ADD-ON POWERCHART * BMP (Basic Metabolic Panel) (07/07/2015 3:50 PM CDT) Sodium, S 141 135 - 145 MMOLL POWERCHART Potassium, S 4.4 3.5 - 5.1 MMOLL POWERCHART Chloride, S 100 98 - 107 MMOLL POWERCHART CO2 Total 28 22 - 29 MMOLL POWERCHART BUN (Blood Urea Nitrogen), S 18 6 - 24 MGDL POWERCHART Creatinine 0.7 0.6 - 1.1 MGDL POWERCHART Calcium, Total, S 10.3 8.6 - 10.3 MGDL POWERCHART Anion Gap 13 7 - 15 MMOLL POWERCHART HXeGFR (MDRD) >60.0 >=60.0 MLMINSA POWERCHART eGFR Black/ >60.0 >=60.0 MLMINSA POWERCHART Glucose 82 70 - 140 MGDL POWERCHART Blood 07/07/2015 3:50 PM CDT Randi Brooks APRN, C.N.P. LAB BLOOD ADD-ON POWERCHART from Last 3 Months or Most Recently Relevant to Health Maintenance Care Teams Chief Technician X Ray Relationship Specialty Start Date End Date Elsewhere, Pcp PCP - General Family Medicine 12/23/18
--- OUTSIDE RECORDS SUMMARY | 2024-07-21 09:16 | XMS_ITS | Clinical Summary ---
Author Organization [facility] Address [place], [place] [address] Care Team Providers Care Delivery Director Name Role Phone Will Long MD Primary Care Provider [phone] Social History Tobacco Use Types Packs/Day Years Used Date Smoking Tobacco: Never Assessed Sex and Gender Information Value Date Recorded Sex Assigned at Not on file Gender Identity Not on file Sexual Orientation Not on file Plan of Treatment Health Maintenance Due Date Last Done Comments Tdap 1967 Depression screening for age 12+ 1968 BMI (ht and wt on same day) for age 18+ 1974 Hepatitis C screening for age 18-79 1974 Tetanus booster 1976 Colonoscopy through age 75 2001 Lipids for age 45-75 2001 Zoster (shingles) series for age 50+ (1 of 2) 2006 Mammogram for age 45-75 07/11/2007 07/11/2006 DEXA/DXA scan for age 65+ 2021 Pneumococcal series for age 65+ (1 of 1 - PCV) 2021 COVID-19 vaccine series (2022-24 season) 2023 09/20/2021, 03/02/2021, 02/02/2021 Influenza for age 65+ 07/25/2024 Procedures Procedure Name Priority Date/Time Associated Diagnosis Comments XR MAMMO SCREENING BILATERAL (IA) Timed 07/11/2006 8:15 AM CDT from Last 3 Months or Most Recently Relevant to Health Maintenance Results * XR MAMMOGRAM SCREENING (07/11/2006 8:15 AM CDT) Anatomical Region Laterality Modality BREASTS, Breast Left, Breast Right Bilateral Mammography 07/11/2006 8:23 AM CDT Narrative 07/11/2006 2:20 PM CDT SCREENING BILATERAL MAMMOGRAM CLINICAL INDICATIONS THIS IS AN ASYMPTOMATIC 51-YEAR-OLD PATIENT. FINDINGS THE STUDY IS COMPARED TO A PREVIOUS MAMMOGRAM FROM [facility] DATED 09/24/1997. MAMMOGRAPHICALLY, THE BREAST TISSUE IS AVERAGE. THERE ARE NO SUSPICIOUS MASSES OR BRANCHING CALCIFICATIONS THAT ARE SUSPICIOUS FOR MALIGNANCY. IMPRESSION THERE IS NO RADIOGRAPHIC EVIDENCE FOR MALIGNANCY. RECOMMEND ANNUAL MAMMOGRAMS. THE [facility] WILL PROVIDE A RESULTS POSTCARD TO THE PATIENT AT THE TIME OF THE APPOINTMENT OR THROUGH THE MAIL. MAMMOGRAM ASSESSMENT: A 1. NEGATIVE SDK/MKT [facility] [place] Tao MD MAMMO from Last 3 Months or Most Recently Relevant to Health Maintenance Care Teams Delivery Director Relationship Specialty Start Date End Date Will Long MD PCP - General Family Practice 01/04/22
--- OUTSIDE RECORDS SUMMARY | 2024-07-21 09:16 | XMS_ITS | Clinical Summary ---
Author Organization [facility] Address [address] [place] [address] Care Team Providers Care Batteryman Name Role Phone Elsewhere, Pcp Primary Care Provider Unavailabl e Source Comments Patient records contain information from all sites at [facility]. For routine questions regarding patient records, call [phone] during business hours, M-F 8:00 AM - 5:00 PM Central Time. Record requests for emergency care only can be directed to [phone] at any time.[facility] Allergies Active Allergy Reactions Criticality Noted Date [...] (Discontinued)(12 years or older) 09/20/2021 Tdap 06/07/2008 Family History Medical History Relation Name Comments Heart failure Father Hypertension Father Relation Name Status Comments Father Social History Tobacco Use Types Packs/Day Years [...] Comments Blood Pressure 130/80 12/03/2022 11:19 AM ADMINISTRATIVE OFFICE ASSISTANT Pulse 78 12/03/2022 11:19 AM ADMINISTRATIVE OFFICE ASSISTANT Temperature 36.9 ??C (98.4 ??F) 03/06/2019 9:01 AM CD T Respiratory Rate 16 07/04/2015 11:09 AM CDT Oxygen Saturation 98% 03/06/2019 9:01 AM CDT Inhaled Oxygen Concentration - - Weight 85.7 kg (188 lb 15 oz) 12/03/2022 11:19 A M ADMINISTRATIVE OFFICE ASSISTANT Height 165 cm (5' 4.96) 12/03/2022 11:19 AM ADMINISTRATIVE OFFICE ASSISTANT Body Mass Index 31.48 12/03/2022 11:19 AM ADMINISTRATIVE OFFICE ASSISTANT Plan of Treatment Health Maintenance Due Date Last Done Comments Bone Density Scan (Osteoporo sis Screen) 1955 CT Colonography 1955 Cologuard 1955 FIT 1955 Hepatitis C Screening 1955 Pneumococcal vaccine (65+ ye ars) (1 of 2 - PCV) 1962 Colonoscopy 2018 2008 Colorectal Cancer Screening 2018 Lipid (Cholesterol) Screening 07/07/2020 07/07/2015 Depression Screening (Annual PHQ-2) 11/24/2023 Fall Risk Screen (Annual) 11/24/2023 COVID-19 Vaccine (6 - 2022-2 4 season) 2024 09/16/2023, 11/20/2022, 09/20/2021, Additional history exists Influenza Vaccine (#1) 2024 , 09/04/2022, 08/31/2021, Additional history exists Fasting Glucose for Diabetes Screening 04/01/2026 04/01/2023, 02/01/2021, 02/02/2020, Additional history exists DTaP,Tdap,and Td Vaccines (5 - Td or Tdap) 01/02/2032 01/02/2022, 10/15/2011, 10/15/2011, Additional history exists Zoster Vaccines Completed 11/06/2020, 09/06/2020 Procedures Procedure Name Priority Date/Time Associated Diagnosis [...] for FH and FDB is available through [facility]: FH/ADH Genetic Reflex Panel (test ADHP). Acquired (non-genetic) causes of markedly increased LDL cholesterol include cholestatic liver disease due to the presence of LpX. If a genetic form of hypercholesterolemia is suspected, family studies including biochemical testing for lipids (total cholesterol,triglycerides, LDL cholesterol and HDL cholesterol) are recommended. ??Please contact the laboratory at or the on-line test catalog at [facility] for information about how to order these [...] Recently Relevant to Health Maintenance Care Teams Batteryman Relationship Specialty Start Date End Date Elsewhere, Pcp PCP - General Family Medicine 12/23/18
--- OUTSIDE RECORDS SUMMARY | 2024-07-21 09:16 | XMS_ITS | Encounter Summary ---
Author Organization [facility] Address [address] [place] [address]. [place] [address] Care Team Providers Care Power Transformer Repair Supervisor Name Role Phone Jinny Rodríguez Unavailable Unavailable Armen Bray MD Unavailable [phone] Smita Worthy MD Unavailable [facility] Primary Care Provider Selma Fong RN Unavailable Alisa Hartman PA-C Unavailable Encounter Details Date Type Department Care Team (Late st Contact Info) Description 04/16/2024 [facility] Medical Advice [facility] [place] [id number] [place] [address] [address] [facility] [place] [phone] Selma Fong, RN Social History Tobacco Use Types Packs/Day Years [...] on filedocumented in this encounter Care Teams Power Transformer Repair Supervisor Relationship Specialty Start Date End Date Clinic, [facility] [address] [place] [address] PCP - General 01/23/21 Jinny Rodríguez 10/18/11 Armen Bray MD [place] [facility] [address] [facility] [address] [place], [place] [address] Oncology 01/20/13 Smita Worthy MD 420 [facility] [address] [place], [place] [address] Oncology 03/21/16 Selma Fong RN Specialty Logging Crew Foreman Hematology & Oncology 10/25/23 Alisa Hartman, PADickC [address] [place] [address] [phone] Assigned Cancer Care Provider 04/15/24 documented as of this encounter
--- OUTSIDE RECORDS SUMMARY | 2024-07-21 09:16 | XMS_ITS | Continuity of Care Document ---
Author Organization [facility] Address [address] [place] [address] Phone Care Team Providers Care Drive In Teller Name Role Phone Ml Perla Unavailable Unavailable [...] [facility], [address], [place], [id number], [place] tel:[phone] [facility] Spinal stenosis, cervical regionOther spondylosis, cervical regionCarpal tunnel syndrome of arm Viktor Bull. [facility], [address], [facility] [place], [address], [place]. tel:[phone] Referring Provider: [facility] [address] [facility] [address], [place], [address]. tel:[phone] Office/Outpat ient Visit,New, Mod [facility], [address], [place], [id number], [place] tel:[phone] [facility] Tito Other spondylosis, cervical regionSpinal stenosis, cervical region Viktor Bull. [facility], [address], [place], [address], [place]. tel:[phone] Referring Provider: [facility] [address], [place], [address]. tel:[phone] Family History Family Member Type Diagnosis Age At Onset No Information Payers Payer name Insurance type Covered alliance party ID Desirae lucio(s) [facility] [id number] [facility] [id number] Medicare [facility] [id number] 1 Social History Type Description Quantity Date [...]
--- OUTSIDE RECORDS SUMMARY | 2024-07-21 09:16 | XMS_ITS | Encounter Summary ---
Author Organization [facility] Address [address] [place] [address] Care Team Providers Care Biofuels Production Technician Name Role Phone Jinny Rodríguez Unavailable Unavailable Armen Bray MD Unavailable [phone] Smita Worthy MD Unavailable [facility] Primary Care Provider Selma Fong RN Unavailable [phone] Alisa Atkinson PA-C Unavailable Reason for Referral * CV Testing (Routine) - Closed Specialty Diagnoses / Procedures Referred By Contfrancoise t Referred To Contact Cardiology Diagnoses MOE (dyspnea on exertion) Procedures Echocardiogram Complete ZZHC TTE W/DOPPLER, COMPLETE [facility] ECHO COMPLETE W DOPPLER W CONTRAST [facility] ECHO COMPLETE W DOPPLER W/O CONTRAST [facility] IV PUSH SINGLE, INITIAL SUBSTANCE ZZHC US GUIDE FOR PERICARDIOCENTESIS ZZHC ECHO MYOCARD BX ZZC INJECTION, PERFLUTREN LIPID MICROSPHERES, PER ML [facility] STATISTIC IV PUSH SINGLE INITIAL SUBSTANCE NJ ECHO MYOCARD BX NJ INJECTION, PERFLUTREN LIPID MICROSPHERES, PER ML NJ TTE W/DOPPLER, COMPLETE NJ IV PUSH SINGLE, INITIAL SUBSTANCE NJ TTE W/DOPPLER, COMPLETE NJ TTE W/DOPPLER, COMPLETE HC US GUIDE FOR PERICARDIOCENTESIS HC ECHO MYOCARD BX HC IV PUSH SINGLE, INITIAL SUBSTANCE HC STATISTIC IV PUSH SINGLE INITIAL SUBSTANCE HC ECHO COMPLETE W DOPPLER W CONTRAST HC ECHO COMPLETE W DOPPLER W/O CONTRAST Alisa Atkinson, PA-C [address] [place] [address] Fax: [phone] Rh Cv Cardiac Svc Rscc [id number] [facility] [address] [place] [address] Referral ID Status Reason Start Date Expiration Date Visits Re quested Visits Authorized [id number] Closed 04/22/2024 03/31/2025 1 1 Reason for Visit * CV Testing (Routine) - Closed Specialty Diagnoses / Procedures Referred By Contac t Referred To Contact Cardiology Diagnoses MOE (dyspnea on exertion) Procedures Echocardiogram Complete [facility] TTE W/DOPPLER, COMPLETE ZZ[facility] ECHO COMPLETE W DOPPLER W CONTRAST [facility] ECHO COMPLETE W DOPPLER W/O CONTRAST ZZHC IV PUSH SINGLE, INITIAL SUBSTANCE ZZHC US GUIDE FOR PERICARDIOCENTESIS ZZHC ECHO MYOCARD BX ZZC INJECTION, PERFLUTREN LIPID MICROSPHERES, PER ML ZZHC STATISTIC IV PUSH SINGLE INITIAL SUBSTANCE NJ ECHO MYOCARD BX NJ INJECTION, PERFLUTREN LIPID MICROSPHERES, PER ML NJ TTE W/DOPPLER, COMPLETE NJ IV PUSH SINGLE, INITIAL SUBSTANCE NJ TTE W/DOPPLER, COMPLETE NJ TTE W/DOPPLER, COMPLETE HC US GUIDE FOR PERICARDIOCENTESIS HC ECHO MYOCARD BX HC IV PUSH SINGLE, INITIAL SUBSTANCE HC STATISTIC IV PUSH SINGLE INITIAL SUBSTANCE HC ECHO COMPLETE W DOPPLER W CONTRAST HC ECHO COMPLETE W DOPPLER W/O CONTRAST Alisa Atkinson PA-C [address] [place] [address] Fax: [phone] Rh Cv Cardiac Svc Rscc [id number] [facility] [address] [place] [phone] Referral ID Status Reason Start Date Expiration Date Visits Re quested Visits Authorized [id number] Closed 04/22/2024 03/31/2025 1 1 Encounter Details Date Type Department Care Team (Latest Contact Info) Description 04/22/2024 2:26 PM CDT - 04/22/2024 11:59 PM CDT Hospital Encounter [facility] Specialty Care [address] [facility] [address] [place] [phone] Alisa Atkinson, LATISHA [address] [place] [address] MOE (dyspnea on exertion) Discharge Disposition: Home or Self Care Social History Tobacco Use Types Packs/Day Years [...] on file documented as of this encounter Medications at Time of Discharge Medication Sig Dispensed Refills Start Date End Date atorvastatin (LIPITOR) 20 MG tablet Take 20 mg by mouth daily cholecalciferol (VITAMIN D3) 25 mcg (1000 units) capsule Take 1 capsule by mouth daily documented as of this encounter Plan of Treatment Not on file documented as of this encounter Procedures Procedure Name Priority Date/Time Associated Diagnosis Comments ECHO COMPLETE Routine 04/22/2024 3:06 PM CDT MOE (dyspnea on exertion) documented in this encounter Results * ECHO COMPLETE (04/22/2024 3:06 PM CDT) LVEF 55-60% CARDIOLOGY RESULTS Anatomical Region Laterality Modality Echocardiography 04/22/2024 1:39 PM CDT Narrative 04/22/2024 4:19 PM CDT [id number]^RAMIRO BUSTOS^AILSA^[facility] Echocardiography Laboratory [address] [place] [address] Name: EVON NICHOLSON : 1955 Study Date: 04/22/2024 01:39 PM Age: 69 yrs Gender: Female Patient Location: [facility] Reason For Study: MOE Ordering Physician: ALISA ATKINSON Referring Physician: [facility] Performed By: Marita Vega RDCS BSA: 1.7 [...] Procedure Note Benito Herrera MD - 04/22/2024 [id number]^RAMIRO BUSTOS^ALISA^[facility] Echocardiography Laboratory [address] [place] [address] Name: EVON NICHOLSON : 1955 Study Date: 04/22/2024 01:39 PM Age: 69 yrs Gender: Female Patient Location: [facility] Reason For Study: MOE Ordering Physician: ALISA ATKINSON Referring Physician: [facility] Performed By: Marita Vega RDCS BSA: 1.7 [...] PM Alisa Bustos PA-C CV ECHO ORDERABLES documented in this encounter Visit Diagnoses Diagnosis MOE (dyspnea on exertion) Other dyspnea and respiratory abnormality documented in this encounter Care Teams Biofuels Production Technician Relationship Specialty Start Date End Date Clinic, [address] [address] PCP - General 01/23/21 Jinny Rodríguez 10/18/11 Armen Bray MD [place] [facility] [address] [facility] [address] [place], [place] [address] Oncology 01/20/13 Smita Worthy MD 420 [facility] [address] [place], [place] [address] Oncology 03/21/16 Selma Fong, RN Specialty Plant Changer Hematology & Oncology 10/25/23 Alisa Atkinson PA-C [address] [place] [address] [phone] Assigned Cancer Care Provider 04/15/24 documented as of this encounter
== END 2024-07-21 09:13 | disposition home or self-care (01) ==
LOC: LKVREF 09:12
PROVIDERS: PCP Family Medicine; Visit Provider Family Medicine
DX: E78.5 Hyperlipidemia, unspecified (principal); E66.9 Obesity, unspecified
CPT/HCPCS: 80061

== ENCOUNTER 2025-08-01 11:42 | Outpatient (CLI) | payer MEDICARE, BC, SELFPAY | END 2025-08-01 11:43 | disposition home or self-care (01) | PROVIDERS: PCP Family Medicine; Visit Provider Family Medicine | DX: E78.00 Pure hypercholesterolemia, unspecified (principal); R22.31 Localized swelling, mass and lump, right upper limb | CPT/HCPCS: 80061; 84443 ==

== ENCOUNTER 2025-08-16 08:51 | Outpatient (CLI) | payer MEDICARE, BC, SELFPAY ==
--- NOTE | 2025-08-16 09:15 | CRLHL7_ITS ---
For Patients: As a result of the Century Cures Act, medical imaging exams and procedure reports are released immediately into your electronic medical record. You may view this report before your referring provider. If you have questions, please contact your health care provider. EXAM: MRI OF THE RIGHT FOREARM, WITHOUT AND WITH IV CONTRAST CLINICAL INDICATION: Proximal forearm mass. COMPARISON PLAIN FILMS: None. COMPARISON CROSS-SECTIONAL IMAGING STUDIES: None. TECHNICAL: Axial, sagittal and coronal T1 and STIR images precontrast. Postcontrast T1 weighted imaging with fat saturation. Contrast gadolinium based contrast IV. FINDINGS: SOFT TISSUES MUSCLES AND TENDONS: Lobular subcutaneous mass in the posterolateral aspect of the elbow is superficial to the distal common extensor tendon and abuts the adjacent extensor digitorum and anconeus fascia. The mass is at the level of the radial neck. The mass measures 1.5 x 1.3 x 0.7 cm in size. The mass demonstrates decreased T1, increased T2 signal with a few surrounding vessels. No internal enhancement. Findings consistent with a ganglion cyst. No additional soft tissue abnormalities are evident. No intramuscular mass. No muscle atrophy or edema. High-grade partial-thickness tear of the common extensor tendon origin. OSSEOUS STRUCTURES: No fracture, bone marrow contusion, stress change or marrow replacement process. No periosteal edema/reaction. JOINTS: No elbow joint effusion. IMPRESSION: 1. Subcutaneous mass in the posterolateral elbow superficial to the muscle fascia at the level of the radial neck consistent with a ganglion cyst. 2. High-grade partial-thickness tear of the common extensor tendon origin. Dictated by Navi Martinez MD @ 08/16/2025 9:07:42 PM (Electronically Signed)
== END 2025-08-16 08:52 | disposition home or self-care (01) ==
LOC: MRI 08:53
PROVIDERS: PCP Family Medicine; Visit Provider Family Medicine
DX: R22.31 Localized swelling, mass and lump, right upper limb (principal); C50.919 Malignant neoplasm of unspecified site of unspecified female breast; I89.0 Lymphedema, not elsewhere classified
CPT/HCPCS: 73220; A9575